=== PATIENT | male | born 1955 | race Caucasian/White ===

== ENCOUNTER 2016-06-26 10:26 | Day surgery (SDC) | payer OTHER ==
[2016-06-25 12:46] LABS: BASOPHILS 0.5 %; BASOPHILS ABSOLUTE 0.05 10/3/uL (0.0-0.16); EOSINOPHILS 0.6 %; EOSINOPHILS ABSOLUTE 0.06 10/3/uL (0.0-0.53); HEMATOCRIT 45.1 % (40.0-51.0); IMMATURE GRANULOCYTES 0.3 %; IMMATURE GRANULOCYTES ABSOLUTE 0.03 10/3/uL (0.0-0.11); LYMPHOCYTES 23.9 %; MEAN CORPUS HGB CONC 35.5 g/dL (32.0-36.0); MEAN CORPUSCULAR HEMOGLOB 31.6 pg (26.0-34.0); MEAN CORPUSCULAR VOLUME 89.1 fL (80-100); MEAN PLATELET VOLUME 9.1 fL (9.2-13.0); MONOCYTES 10.1 %; MONOCYTES ABSOLUTE 0.97 10/3/uL (0.21-1.20); NEUTROPHILS 64.6 %; PLATELET COUNT 276 10/3/uL (150-400); RBC DISTRIBUTION WIDTH 13.5 % (12.0-16.0); RED CELL COUNT 5.06 10/6/uL (4.7-6.1); WHITE BLOOD CELLS 9.6 10/3/uL (4.5-10.5)
[2016-06-25 12:47] LABS: MANUAL DIFF NO %
[2016-06-25 12:52] LABS: ASCORBIC ACID (UR NOT ORDER) NEG (NEG); BILIRUBIN, URINE NEGATIVE (NEG); KETONE, URINE NEGATIVE (NEG); LEUKOCYTE ESTERASE(NOT OR NEG (NEG); WBC (NOT ORDERED) (RFLEX) 1 (0-5)
[2016-06-25 13:01] LABS: BUN (BLOOD UREA NITROGEN) 14 MG/DL (6-23); CALCIUM, SERUM 8.9 MG/DL (8.5-10.4); CHLORIDE, SERUM 109 MMOL/L (96-112); CO2 (CARBON DIOXIDE) 26 MMOL/L (24-34); CREATININE 1.28 MG/DL (0.70-1.30); GFR AFRICAN AMERICAN 69 ML/MIN (>=60); GFR NON AFRICAN AMERICAN 60 ML/MIN (>=60); GLUCOSE, SERUM 118 MG/DL (60-99); POTASSIUM, SERUM 4.1 MMOL/L (3.5-5.3); SODIUM, SERUM 145 MMOL/L (135-148)
--- NOTE | ~2016-06-26 | OP ---
Record Of [address] [place]. [address] NAME: MICAH MARKS : 53 STATUS : REG [facility] [place] PAT#: [id number] AGE: 61 ADM/REG DATE : 06/26/16 MR#: [id number] REPORT SERV DATE: 06/26/16 DICTATED BY: Mukul AGUIRRE DATE: 06/26/16 REPORT STATUS : Draft TRANSCRIBED BY: MODL DATE: 06/26/16 DATE OF PROCEDURE: 06/26/2016 PREOPERATIVE DIAGNOSIS: Symptomatic left renal stone. POSTOPERATIVE DIAGNOSIS: Symptomatic left renal stone. PROCEDURE: Left renal ESWL. SURGEON: Mukul Aguirre M.D. ANESTHESIA: MAC. COMPLICATIONS: None. DRAINS: None. BRIEF HISTORY: Mr. Marks is a 61-year-old white male with a history of stone disease who presented recently with left flank pain. KUB showed a 7 mm calcification near L3 on the left which confirmed to be a stone, partially obstructing his left kidney. We decided to proceed with ESWL. We discussed the risk of bleeding, infection, anesthesia, injury to adjacent organs, need for retreatment, endoscopy, etc. Preop KUB showed the stone had moved back into the area of the mid to lower pole of the left kidney. DESCRIPTION OF PROCEDURE: Under IV sedation, the patient placed supine on the Dornier Delta II lithotripsy machine. The stone was localized at F2, and a total of 2500 shocks to a power level up to 5.0 were delivered to the stone. The stone appeared to at least fragment partially. The patient tolerated the procedure well and will be discharged as an outpatient with the following instructions: DISCHARGE INSTRUCTIONS: 1. Home today. 2. Call for intractable pain, fever, etc. 3. Strain urine and save fragments. 4. Continue Percocet and tamsulosin as prescribed in the office earlier this week. SANDY/YOANDY Mukul Aguirre M.D. / [id number] CC: Record Of [address] [place]. [address] NAME: MICAH MARKS : 53 STATUS : REG [facility] [place] PAT#: [id number] AGE: 61 ADM/REG DATE : 06/26/16 MR#: [id number] REPORT SERV DATE: 06/26/16 DICTATED BY: Mukul AGUIRRE DATE: 06/26/16 REPORT STATUS : Draft TRANSCRIBED BY: MODL DATE: 06/26/16 Dieter Banuelos
[~2016-06-26 10:26] MED LIST: *DENIES; NORCO1 TA1 PO; PROTONIX20 MG PO
== END 2016-06-26 17:05 | disposition home or self-care (01) ==
LOC: SDC 10:26
PROC: 0TF4XZZ Fragmentation in Left Kidney Pelvis, External Approach (ICD-10-PCS; principal; 2016-06-26 13:00)
DX: N20.0 Calculus of kidney (principal); K21.9 Gastro-esophageal reflux disease without esophagitis; Z79.899 Other long term (current) drug therapy; Z90.89 Acquired absence of other organs; Z98.890 Other specified postprocedural states; Z90.79 Acquired absence of other genital organ(s); Z87.442 Personal history of urinary calculi
CPT/HCPCS: 50590; 74000; 80048; 81001; 85025; 93005; J3010